=== PATIENT | male | born 1960 | race Hispanic/Latino ===

== ENCOUNTER 2016-10-14 15:18 | Emergency (ER) | payer BC ==
[2016-10-14 15:19] VITALS: BMI 29.4
--- NOTE | 2016-10-14 15:45 | ED PDOC ---
Arrival/HPI - General Chief Complaint: Male Genitourinary Time Seen by Provider: 10/14/16 15:27 Historian: Patient - History of Present Illness Narrative History of Present Illness (Text): 10/14/16 15:42 56-year-old male presents today sent in by his urologist for an erection that has lasted greater than 4 hours. Patient states he has erectile dysfunction after having chemotherapy and with his colostomy. Patient states he used to take just dialysis alone but it was not working so he started taking Trimex injections. Patient states he was injected with trimix today and states that while taking his afternoon medications he is concerned that he may have taken his Cialis as well. Patient states he has had an erection for the past 4 hours. Patient denies pain. Denies fevers or chills. Denies abdominal pain. No nausea or vomiting. Denies dizziness or weakness. Patient states he spoke to his urologist and the urologist is going to come into the emergency room to relieve the priapism. Time/Duration: 4-6 hours Symptom Onset: Gradual Symptom Course: Unchanged Quality: Other (no pain) Past Medical History - Provider Review Nursing Documentation Reviewed: Yes - Travel History Have you recently traveled outside [place] w/in the past 3 mons?: No - Tetanus Immunization Tetanus Immunization: Unknown - Cardiac Hx Pacemaker: Yes ([facility] 01/2009) - Neurological Hx Paralysis: No - Hematological/Oncological Hx Blood Transfusions: No Hx Blood Transfusion Reaction: No - Musculoskeletal/Rheumatological Hx Musculoskeletal Disorders: No - Gastrointestinal Hx Colitis: Yes Hx Colostomy: Yes Other/Comment: Colon CA - Psychiatric Hx Emotional Abuse: No Hx Substance Use: No - Surgical History Hx Open Heart Surgery: Yes Other/Comment: Colectomy with ostomy, artifical heart valve - Anesthesia Hx Anesthesia Reactions: No Hx Malignant Hyperthermia: No - Suicidal Assessment Feels Threatened In Home Enviroment: No Family/Social History - Physician Review Nursing Documentation Reviewed: Yes Family/Social History: Unknown Family HX Smoking Status: Never Smoked Hx Alcohol Use: No Hx Substance Use: No Allergies/Home Meds Allergies/Adverse Reactions: Allergies Iodinated Contrast- Oral and IV Dye Adverse Reaction (Verified 10/14/16 15:28) URTICARIA Home Medications: Home Meds Medication Instructions Recorded Confirmed Losartan Potassium 25 mg PO DAILY 08/01/12 10/14/16 Mesalamine [Asacol HD 800mg] 2 tab PO DAILY 10/14/16 10/14/16 Warfarin [Coumadin] 5 mg PO DAILY 10/14/16 10/14/16 metFORMIN [glucOPHAGE] 500 mg PO BID 10/14/16 10/14/16 Review of Systems - Review of Systems Constitutional: absent: Fatigue, Fevers Respiratory: absent: SOB, Cough Cardiovascular: absent: Chest Pain, Palpitations Gastrointestinal: absent: Abdominal Pain, Diarrhea, Nausea, Vomiting Genitourinary Male: Other (Priapism). absent: Dysuria, Frequency, Hematuria Musculoskeletal: absent: Arthralgias, Back Pain, Neck Pain Skin: absent: Rash, Pruritis Neurological: absent: Headache, Dizziness Psychiatric: absent: Anxiety, Depression Physical Exam Vital Signs Reviewed: Yes Vital Signs Temp Pulse Resp BP Pulse Ox 10/14/16 17:37 98.9 F 80 16 150/86 98 10/14/16 16:22 98.1 F 78 16 130/80 98 10/14/16 16:17 80 130/80 Temperature: Afebrile Blood Pressure: Normal Pulse: Regular Respiratory Rate: Normal Appearance: Positive for: Well-Appearing, Non-Toxic, Comfortable Pain Distress: None Mental Status: Positive for: Alert and Oriented X 3 - Systems Exam Head: Present: Atraumatic Respiratory/Chest: Present: Clear to Auscultation, Good Air Exchange. No: Respiratory Distress, Accessory Muscle Use Cardiovascular: Present: Regular Rate and Rhythm, Normal S1, S2. No: Murmurs Abdomen: Present: Ostomy Tubes (colostomy inplace. no erythema; non tender. ). No: Tenderness, Distention Genitourinary Male: Present: Normal External Genitalia (erect penis). No: Penile Discharge, Testicle Tenderness, Penile Swelling, Erythema Back: Present: Normal Inspection Neurological: Present: GCS=15 Skin: Present: Warm, Dry, Normal Color. No: Rashes Psychiatric: Present: Alert, Oriented x 3 Medical Decision Making ED Course and Treatment: 10/14/16 15:51 56yr old male with priapism. pt was seen in ER by dr. blair (urologist) Priapism resolved after phenylephrine injection performed by Dr. Blair Patient was observed in the emergency room. Vitals remained stable. Patient nontoxic well-appearing no distress. will d/c home to f/u with dr. blair impression; Priaprism follow up with dr. blair return if symptoms worsen,persist or if new symptoms develop. - Medication Orders Current Medication Orders: Discontinued Medications Phenylephrine HCl 10 mg/ (Sodium Chloride) 501 mls @ 500 mls/hr IR .[id number] CLAUDIA Stop: 10/14/16 17:00 Last Admin: 10/14/16 16:17 Dose: 500 mls/hr Comments: Admin by Dr. Blair Disposition/Present on Arrival - Present on Arrival Any Indicators Present on Arrival: No History of DVT/PE: No History of Uncontrolled Diabetes: No Urinary Catheter: No History of Decub. Ulcer: No History Surgical Site Infection Following: None - Disposition Have Diagnosis and Disposition been Completed?: Yes Diagnosis: Priapism Disposition: HOME/ ROUTINE Disposition Time: 17:28 Patient Plan: Discharge Condition: GOOD Additional Instructions: follow up with dr. blair return if symptoms worsen,persist or if new symptoms develop. Referrals: Jerel Blair MD [Staff Provider] - Follow up with primary
[2016-10-14 16:22] VITALS: RESP 16; O2SAT 98
[2016-10-14 17:37] VITALS: BP 150/86; PULSE 80; TEMP 98.9
--- NOTE | 2016-10-14 22:43 | CON ---
GENITOURINARY CONSULTATION DATE: 10/14/2016 HISTORY OF PRESENT ILLNESS: The patient was seen in the ER as an emergency consultation for priapism. He had injected 1 mL of standard Trimix over four hours ago and also may have mistakenly taken a Cialis thinking it was one of his other pills that he takes during the day. This may have contributed to the priapism. It was the first time, he had injected 1 mL of the standard Trimix. The patient was seen in the ER. The penis was erect, but was not painful. It also did not respond to ice or Sudafed that the patient had taken. He had a 21 gauge butterfly inserted into his left corpora. I irrigated him with the solution of 10 mg phenylephrine and 500 mL normal saline. After several irrigations of 10 mL, the penis detumesced rapidly. The irrigant that returned was bright red after the irrigation. The penis remained detumescence. The butterfly was removed. The pressure was held at the site for 5 minutes by the patient with me being present and he was reinspected and again the penis was remaining flaccid. He will be kept in the ER for monitoring over the next half an hour and if stable, will be allowed to go home. He was instructed not to do any corporal injection for one week and when he does to only resume at 0.8 mL of the standard Trimix. Jerel Blair MD
== END 2016-10-14 17:49 | disposition home or self-care (01) ==
LOC: ED 15:18
DX: N48.30 Priapism, unspecified (principal)
CPT/HCPCS: 96374; 99284; J2370; J7040

== ENCOUNTER 2017-02-25 08:06 | Day surgery (SDC) | payer BC ==
[2017-02-12 12:32] VITALS: BMI 28.7
[2017-02-25 08:45] LABS: INR 1.09 (0.93-1.08); PARTIAL THROMBOPLASTIN TIME 35.6 Seconds (25.1-36.5)
[2017-02-25] MEDS ORDERED: Bupivacaine 0.5% Inj(30mL) ONE (08:58)
[2017-02-25] MEDS ORDERED: Propofol 10 mg/ml Inj (20 ML) ONE (09:32)
[2017-02-25] MEDS ORDERED: Midazolam 2 MG/2 ML VIAL ONE (09:33)
[2017-02-25] MEDS ORDERED: Sevoflurane - Inhalation Anesthetic Liq (250 ml) ONE (09:58)
[2017-02-25] MEDS ORDERED: Neostigmine Methylsulfate 3mg/3ml Syringe IV ONE (09:59)
[2017-02-25] MEDS ORDERED: Glycopyrrolate 0.2 mg/ml (2ml vial) ONE (09:59)
[2017-02-25] MEDS ORDERED: Rocuronium 10 mg/ml (5 ml) ONE (10:42)
[2017-02-25] MEDS ORDERED: Morphine 2 mg/ml ISec IVP PRN (11:14)
[2017-02-25] MEDS ORDERED: HYDROmorphone 0.5 mg/0.5 ml ISec IVP PRN (11:14)
[2017-02-25] MEDS ORDERED: Lactated Ringer's 1,000 ML IV SCH (11:15)
[2017-02-25] MEDS ORDERED: HYDROmorphone 1 mg/ml ISec IVP PRN (12:50)
[2017-02-25] MEDS ORDERED: HYDROmorphone 0.5 mg/0.5 ml ISec ONE (12:58)
--- NOTE | 2017-02-25 13:25 | PCM.SURG1 ---
Surgeon's Initial Post Op Note - Surgeon's Notes Surgeon: Dr. Coley Dairy Frozen Manager: Dr. Rayo PGY2, Dr. Schrader PGY1, Kev MS4 Type of Anesthesia: General Endo Pre-Operative Diagnosis: incisonal hernia Operative Findings: see op note Post-Operative Diagnosis: as above Operation Performed: open incisonal hernia repair with mesh, panniculectomy, scar revision Specimen/Specimens Removed: skin, scar, pannus Estimated Blood Loss: EBL {In ML}: 15 Drains Used: Jimy Post-Op Condition: Good Date of Surgery/Procedure: 02/25/17 Time of Surgery/Procedure: 09:45
[2017-02-25] MEDS ORDERED: HYDROmorphone 1 mg/ml ISec ONE (13:28)
[2017-02-25] MEDS: HYDROmorphone 0.2 mg/ml (25ml) 25 ML IV PRN (13:46)
[2017-02-25] MEDS: Insulin Reg-MEDIUM-Coverage SC SCH ×2 (18:52→22:21)
[2017-02-25] MEDS: Metoprolol Succinate 100 mg XL Tab PO SCH (18:58)
[2017-02-25] MEDS ORDERED: Influenza Vaccine 60 mcg/0.5 mL SYR (4YR UP) IM ONE (20:08)
[2017-02-25] MEDS ORDERED: Pneumococcal 23-Valent Vaccine IM ONE (20:08)
--- NOTE | 2017-02-25 23:13 | OP ---
PROCEDURE DATE: 02/25/2017 PREOPERATIVE DIAGNOSES: 1. Incarcerated large incisional hernia. 2. Excessive pannus with inflammation. POSTOPERATIVE DIAGNOSES: 1. Incarcerated large incisional hernia. 2. Excessive pannus with inflammation. PROCEDURES PERFORMED: 1. Open incisional hernia repair with double-layered mesh. 2. Panniculectomy. SURGEON: Joe Coley MD ASSISTANTS: Dr. Rayo and Dr. Rios. ANESTHESIOLOGIST: Dr. Casillas. TYPE OF ANESTHESIA: General endotracheal anesthesia. ESTIMATED BLOOD LOSS: Minimal. SPECIMEN: Excess fat and scar tissue. INDICATIONS: The patient is a 56-year-old male with a history of ulcerative colitis status post subtotal colectomy with J-pouch creation. The patient had previously also ileostomy, which was recently closed. The patient developed incisional hernia postoperatively, which has been increasing in size to the point where now most of the abdominal content is within the hernia. The patient was brought in for the repair. DESCRIPTION OF PROCEDURE: The patient was brought to the operating room, placed on the operating table in a supine position. The patient was connected to EKG, blood pressure and pulse oximetry monitors. The patient then underwent general endotracheal anesthesia and was prepped and draped in the usual sterile fashion. First, using #15 blade, an incision was made lateral to the scar tissue and access to the hernia sac was obtained. The hernia sac was then incised and access to the abdominal cavity was obtained. This was carefully extended and evaluated for the edges of the adequate fascia. Once this was determined, we then proceeded with resection of the excessive pannus with inflammation and removed it completely to the fascia. A portion of the hernia sac was removed with that as well. Once this was completed, flaps were raised laterally to the lateral border of the rectus muscle. A 15 x 20 and 10 x 15 Parietex meshes were sutured together in order to cover the entire defect which was about 30 x 15 cm. Once this was done, I then proceeded with mobilization of the lateral aspect of both fascial layers on both sides as well as mobilization of the retro-bladder space in order to oppose the mesh against the fascia. Once the mesh was sutured together, it was placed in the abdominal cavity and multiple interrupted #1 Prolene stitches were used in order to fix it along the lateral wall as well as on top and the bottom. Once this was completed and the mesh was backed up about 5 to 7 cm laterally in the preperitoneal fashion, I then proceeded with completely tying all those stitches and placing in between. Once the edge of the mesh was safely tacked against the abdominal wall, I then proceeded with closure of the wound using #1 PDS in a running fashion. The Jimy drain was placed into the subcutaneous area where the flaps were raised in order to avoid any seromas. The inflamed fat and skin as well as scar tissue were all sent to the specimen. The resected was about 30 x 25 cm in dimensions. Once the skin was closed and the Jimy drain was attached to suction, the patient was awakened, extubated, and transferred to recovering room for further observation. Joe Coley MD JULIO CÉSAR
[2017-02-26] MEDS: HYDROmorphone 0.2 mg/ml (25ml) 25 ML IV PRN (02:52)
[2017-02-26 06:34] LABS: BASO # 0.02 K/mm3 (0.0-2.0); BASO % 0.2 % (0.0-3.0); EOS # 0.4 (0.0-0.7); EOS % 3.1 % (1.5-5.0); GRAN # 8.13 (1.4-6.5); GRAN % 71.8 % (50.0-68.0); HEMATOCRIT 36.9 % (42.0-52.0); LYMPH # 1.8 (1.2-3.4); LYMPH % 16.2 % (22.0-35.0); MEAN CELL VOLUME 89.3 fl (80.0-105.0); MEAN CORPUSCULAR HGB CONC 33.6 g/dl (31.0-37.0); MEAN PLATELET VOLUME 9.3 fl (7.0-11.0); MONO % 8.7 % (1.0-6.0); RED CELL DISTRIBUTION WIDTH 14.8 % (11.5-14.5); WHITE BLOOD COUNT 11.3 10^3/ul (4.5-11.0)
[2017-02-26 06:43] VITALS: RESP 20; TEMP 98.8
[2017-02-26 06:54] LABS: ALB/GLOB RATIO 1.3 (1.1-1.8); ALKALINE PHOSPHATASE 71 U/L (38-126); ALT/SGPT 35 U/L (7-56); AST/SGOT 30 U/L (17-59); BLOOD UREA NITROGEN 16 mg/dL (7-21); CALCIUM 8.7 mg/dL (8.4-10.5); CARBON DIOXIDE 25 mmol/L (21-33); CHLORIDE 102 mmol/L (98-107); GFR AFRICAN-AMERICAN > 60; GLUCOSE,RANDOM 95 mg/dL (70-110); POTASSIUM 4.3 mmol/L (3.6-5.0); SODIUM 136 mmol/L (132-148)
[2017-02-26] MEDS: Insulin Reg-MEDIUM-Coverage SC SCH ×2 (08:00→12:00)
--- NOTE | 2017-02-26 08:11 | CP.PCM.PN ---
<Jose Schrader - Last Filed: 02/26/17 13:15> Subjective - Date & Time of Evaluation Date of Evaluation: 02/26/17 Time of Evaluation: 06:45 - Subjective Subjective: General Surgery- Dr. Coley Patient seen and examined at bedside this AM. Duque put in last night due to urine retention. 970cc after initial duque insertion. Pain controlled under current regiment. tolerating current diet. Denies nausea, vomiting, chest pain, shortness of breath, fevers, chills. Jimy: 60cc sersang Objective - Vital Signs/Intake and Output Vital Signs (last 24 hours): Temp Pulse Resp BP Pulse Ox 98.8 F 72 20 98/60 L 98 02/26/17 06:40 02/25/17 19:46 02/26/17 06:40 02/26/17 06:40 02/25/17 13:55 Intake and Output: 02/26/17 02/26/17 06:59 18:59 Intake Total 1945 Output Total 1960 Balance -15 - Medications Medications: Current Medications Acetaminophen (Tylenol 325mg Tab) 650 mg PO Q4 PRN PRN Reason: Fever >100.4 F Cephalexin Monohydrate (Keflex) 500 mg PO Q8 CLAUDIA PRN Reason: Protocol Last Admin: 02/26/17 05:44 Dose: 500 mg Enoxaparin Sodium (Lovenox) 40 mg SC DAILY CLAUDIA PRN Reason: Protocol Furosemide (Lasix) 40 mg PO DAILY PRN PRN Reason: Swelling Last Admin: 02/25/17 18:57 Dose: 40 mg Hydromorphone HCl (Dilaudid) 1 mg IVP Q4H PRN PRN Reason: Pain, severe (8-10) Last Admin: 02/25/17 17:12 Dose: 1 mg Hydromorphone HCl (Dilaudid 0.2 Mg/Ml Client Director) 25 mls @ 0 mls/hr IV PRN PRN; Protocol; 0 MG/HR PRN Reason: [employer]ONDS[employer] PER MD ORDER Last Admin: 02/26/17 02:52 Dose: 0.2 mg/hr, 1 mls/hr Insulin Human Regular (Humulin R Med) 0 units SC ACHS CLAUDIA PRN Reason: Protocol Last Admin: 02/25/17 22:21 Dose: Not Given Losartan Potassium (Cozaar) 25 mg PO QAM [facility] Metoclopramide HCl (Reglan) 10 mg IV ONCE PRN PRN Reason: Nausea/Vomiting Metoprolol Succinate (Toprol Xl) 100 mg PO BID [facility] Last Admin: 02/25/17 18:58 Dose: 100 mg Morphine Sulfate (Morphine) 2 mg IVP Q15M PRN PRN Reason: Pain, moderate (4-7) Ondansetron HCl (Zofran Inj) 4 mg IVP Q4H PRN PRN Reason: Nausea/Vomiting Tramadol HCl (Ultram) 50 mg PO TID PRN PRN Reason: Pain, moderate (4-7) - Labs Labs: 02/26/17 05:30 02/26/17 05:30 PT 12.0 SECONDS (9.4-12.5) 02/25/17 08:20 INR 1.09 (0.93-1.08) H 02/25/17 08:20 APTT 35.6 Seconds (25.1-36.5) 02/25/17 08:20 - Constitutional Appears: Non-toxic, No Acute Distress - Head Exam Head Exam: ATRAUMATIC - Eye Exam Eye Exam: EOMI. absent: Scleral icterus - ENT Exam ENT Exam: Mucous Membranes Moist - Respiratory Exam Respiratory Exam: NORMAL BREATHING PATTERN. absent: Accessory Muscle Use, Respiratory Distress - Cardiovascular Exam Cardiovascular Exam: +S1, +S2. absent: Bradycardia, Tachycardia - GI/Abdominal Exam GI & Abdominal Exam: Soft. absent: Distended, Firm, Guarding, Rigid, Tenderness - Neurological Exam Neurological Exam: Alert, Awake, Oriented x3 - Psychiatric Exam Psychiatric exam: Normal Affect - Skin Skin Exam: Intact, Warm Assessment and Plan - Assessment and Plan (Free Text) Assessment: 56M s/p open incisional hernia repair with mesh, panniculectomy, scar revision POD#1 Plan: - d/c duque - void trial, if unable to void after 8hrs, will put duque back in - pain control PRN. will D/C [employer]ONDSMAN this afternoon - encourage IC and OOB - regular diet - monitor drain output - discussed with Dr. Vianca Schrader PGY1 <Joe Coley - Last Filed: 02/26/17 19:07> Objective - Vital Signs/Intake and Output Vital Signs (last 24 hours): Temp Pulse Resp BP Pulse Ox 98.8 F 58 L 20 143/87 100 02/26/17 08:32 02/26/17 08:32 02/26/17 08:32 02/26/17 10:44 02/26/17 08:32 - Labs Labs: 02/26/17 05:30 02/26/17 05:30 PT 12.0 SECONDS (9.4-12.5) 02/25/17 08:20 INR 1.09 (0.93-1.08) H 02/25/17 08:20 APTT 35.6 Seconds (25.1-36.5) 02/25/17 08:20 Assessment and Plan - Assessment and Plan (Free Text) Plan: Patient was seen, evaluated and examined by me. I agree with the assessment and plan as per the resident's note.
[2017-02-26 08:35] VITALS: PULSE 58; O2SAT 100
[2017-02-26] MEDS ORDERED: Enoxaparin 40 mg Syringe SC SCH (10:00)
[2017-02-26] MEDS: Metoprolol Succinate 100 mg XL Tab PO SCH (10:41)
[2017-02-26 10:44] VITALS: BP 143/87
[2017-02-26] MEDS ORDERED: Oxycodone/Acetaminophen 5/325 mg Tab PO PRN (13:56)
--- NOTE | 2017-02-26 14:16 | CP.PCM.DIS ---
<Haydee Rayo - Last Filed: 02/26/17 14:13> Provider - Provider Attending physician: Joe Coley MD Primary care physician: Grazyna Barber DO Time Spent in preparation of Discharge (in minutes): 45 Hospital Course - Lab Results Lab Results: Most Recent Lab Values WBC 11.3 10^3/ul (4.5-11.0) H 02/26/17 05:30 RBC 4.13 10^6/uL (3.5-6.1) 02/26/17 05:30 Hgb 12.4 g/dL (14.0-18.0) L 02/26/17 05:30 Hct 36.9 % (42.0-52.0) L 02/26/17 05:30 MCV 89.3 fl (80.0-105.0) 02/26/17 05:30 MCH 30.0 pg (25.0-35.0) 02/26/17 05:30 MCHC 33.6 g/dl (31.0-37.0) 02/26/17 05:30 RDW 14.8 % (11.5-14.5) H 02/26/17 05:30 Plt Count 182 10^3/uL (120.0-450.0) 02/26/17 05:30 MPV 9.3 fl (7.0-11.0) 02/26/17 05:30 Gran % 71.8 % (50.0-68.0) H 02/26/17 05:30 Lymph % (Auto) 16.2 % (22.0-35.0) L 02/26/17 05:30 [place] % (Auto) 8.7 % (1.0-6.0) H 02/26/17 05:30 Eos % (Auto) 3.1 % (1.5-5.0) 02/26/17 05:30 Baso % (Auto) 0.2 % (0.0-3.0) 02/26/17 05:30 Gran # 8.13 (1.4-6.5) H 02/26/17 05:30 Lymph # 1.8 (1.2-3.4) 02/26/17 05:30 [place] # 1.0 (0.1-0.6) H 02/26/17 05:30 Eos # 0.4 (0.0-0.7) 02/26/17 05:30 Baso # 0.02 K/mm3 (0.0-2.0) 02/26/17 05:30 PT 12.0 SECONDS (9.4-12.5) 02/25/17 08:20 INR 1.09 (0.93-1.08) H 02/25/17 08:20 APTT 35.6 Seconds (25.1-36.5) 02/25/17 08:20 Sodium 136 mmol/L (132-148) 02/26/17 05:30 Potassium 4.3 mmol/L (3.6-5.0) 02/26/17 05:30 Chloride 102 mmol/L (98-107) 02/26/17 05:30 Carbon Dioxide 25 mmol/L (21-33) 02/26/17 05:30 Anion Gap 14 (10-20) 02/26/17 05:30 BUN 16 mg/dL (7-21) 02/26/17 05:30 Creatinine 1.3 mg/dl (0.8-1.5) 02/26/17 05:30 Est GFR ( Amer) > 60 02/26/17 05:30 Est GFR (Non-Af Amer) 57 02/26/17 05:30 POC Glucose (mg/dL) 155 mg/dL (65-110) H 02/26/17 11:29 Random Glucose 95 mg/dL (70-110) 02/26/17 05:30 Calcium 8.7 mg/dL (8.4-10.5) 02/26/17 05:30 Total Bilirubin 1.0 mg/dL (0.2-1.3) 02/26/17 05:30 AST 30 U/L (17-59) 02/26/17 05:30 ALT 35 U/L (7-56) 02/26/17 05:30 Alkaline Phosphatase 71 U/L (38-126) 02/26/17 05:30 Total Protein 7.0 g/dL (5.8-8.3) 02/26/17 05:30 Albumin 4.0 g/dL (3.0-4.8) 02/26/17 05:30 Globulin 3.0 gm/dL 02/26/17 05:30 Albumin/Globulin Ratio 1.3 (1.1-1.8) 02/26/17 05:30 - Hospital Course Hospital Course: 56 M with multiple surgical history came to same day surgery for ventral hernia repair and paniculectomy. Pt tolerated the surgery well. The following day Mendoza was removed. Voided. Tolerated diet. AMbulated. Pain controlled. Pt is cleared to go home. Discharge Exam - Head Exam Head Exam: ATRAUMATIC Additional comments: See progress note. Discharge Plan - Discharge Medications Prescriptions: Docusate Sodium [Colace] 100 mg PO DAILY #20 capsule Cephalexin [cephalexin] 250 mg PO BID #14 cap oxyCODONE/Acetaminophen [Percocet 5/325 mg Tab] 1 ea PO Q6 #20 tab - Follow Up Plan Condition: GOOD Disposition: HOME/ ROUTINE Instructions: [place] Drain Care (DC), Abdominoplasty (DC) Additional Instructions: Follow up at Dr. Coley's office in 1-2 weeks. Take pain med as needed. Take antibiotic Keflex 250mg 1 pill by mouth with food twice a day for 7 days. No heavy lifting for 6 weeks OK to take shower in 3 days. Referrals: Grazyna Barber DO [Primary Care Provider] - Joe Coley MD [Staff Provider] - <Joe Coley - Last Filed: 02/26/17 19:07> Provider - Provider Attending physician: Joe Coley MD Primary care physician: Grazyna Barber DO Hospital Course - Lab Results Lab Results: Most Recent Lab Values WBC 11.3 10^3/ul (4.5-11.0) H 02/26/17 05:30 RBC 4.13 10^6/uL (3.5-6.1) 02/26/17 05:30 Hgb 12.4 g/dL (14.0-18.0) L 02/26/17 05:30 Hct 36.9 % (42.0-52.0) L 02/26/17 05:30 MCV 89.3 fl (80.0-105.0) 02/26/17 05:30 MCH 30.0 pg (25.0-35.0) 02/26/17 05:30 MCHC 33.6 g/dl (31.0-37.0) 02/26/17 05:30 RDW 14.8 % (11.5-14.5) H 02/26/17 05:30 Plt Count 182 10^3/uL (120.0-450.0) 02/26/17 05:30 MPV 9.3 fl (7.0-11.0) 02/26/17 05:30 Gran % 71.8 % (50.0-68.0) H 02/26/17 05:30 Lymph % (Auto) 16.2 % (22.0-35.0) L 02/26/17 05:30 [place] % (Auto) 8.7 % (1.0-6.0) H 02/26/17 05:30 Eos % (Auto) 3.1 % (1.5-5.0) 02/26/17 05:30 Baso % (Auto) 0.2 % (0.0-3.0) 02/26/17 05:30 Gran # 8.13 (1.4-6.5) H 02/26/17 05:30 Lymph # 1.8 (1.2-3.4) 02/26/17 05:30 [place] # 1.0 (0.1-0.6) H 02/26/17 05:30 Eos # 0.4 (0.0-0.7) 02/26/17 05:30 Baso # 0.02 K/mm3 (0.0-2.0) 02/26/17 05:30 PT 12.0 SECONDS (9.4-12.5) 02/25/17 08:20 INR 1.09 (0.93-1.08) H 02/25/17 08:20 APTT 35.6 Seconds (25.1-36.5) 02/25/17 08:20 Sodium 136 mmol/L (132-148) 02/26/17 05:30 Potassium 4.3 mmol/L (3.6-5.0) 02/26/17 05:30 Chloride 102 mmol/L (98-107) 02/26/17 05:30 Carbon Dioxide 25 mmol/L (21-33) 02/26/17 05:30 Anion Gap 14 (10-20) 02/26/17 05:30 BUN 16 mg/dL (7-21) 02/26/17 05:30 Creatinine 1.3 mg/dl (0.8-1.5) 02/26/17 05:30 Est GFR ( Amer) > 60 02/26/17 05:30 Est GFR (Non-Af Amer) 57 02/26/17 05:30 POC Glucose (mg/dL) 126 mg/dL (65-110) H 02/26/17 16:09 Random Glucose 95 mg/dL (70-110) 02/26/17 05:30 Calcium 8.7 mg/dL (8.4-10.5) 02/26/17 05:30 Total Bilirubin 1.0 mg/dL (0.2-1.3) 02/26/17 05:30 AST 30 U/L (17-59) 02/26/17 05:30 ALT 35 U/L (7-56) 02/26/17 05:30 Alkaline Phosphatase 71 U/L (38-126) 02/26/17 05:30 Total Protein 7.0 g/dL (5.8-8.3) 02/26/17 05:30 Albumin 4.0 g/dL (3.0-4.8) 02/26/17 05:30 Globulin 3.0 gm/dL 02/26/17 05:30 Albumin/Globulin Ratio 1.3 (1.1-1.8) 02/26/17 05:30
--- NOTE | 2017-02-26 16:44 | PCM.URO ---
Urology Progress Note - Objective Lab Studies: Reviewed (gu dx: retention and urolithiasis plans : out pt management , follow up with dr lynda ansari , thanks for gu consult, full note to be dictated) Lab Results Last 24 Hours: Laboratory Results - last 24 hr 02/25/17 02/25/17 02/26/17 16:34 21:51 05:30 WBC 11.3 H RBC 4.13 Hgb 12.4 L Hct 36.9 L MCV 89.3 MCH 30.0 MCHC 33.6 RDW 14.8 H Plt Count 182 MPV 9.3 Gran % 71.8 H Lymph % (Auto) 16.2 L [place] % (Auto) 8.7 H Eos % (Auto) 3.1 Baso % (Auto) 0.2 Gran # 8.13 H Lymph # 1.8 [place] # 1.0 H Eos # 0.4 Baso # 0.02 Sodium Potassium Chloride Carbon Dioxide Anion Gap BUN Creatinine Est GFR ( Amer) Est GFR (Non-Af Amer) POC Glucose (mg/dL) 107 138 H Random Glucose Calcium Total Bilirubin AST ALT Alkaline Phosphatase Total Protein Albumin Globulin Albumin/Globulin Ratio 02/26/17 02/26/17 02/26/17 05:30 07:29 11:29 WBC RBC Hgb Hct MCV MCH MCHC RDW Plt Count MPV Gran % Lymph % (Auto) [place] % (Auto) Eos % (Auto) Baso % (Auto) Gran # Lymph # [place] # Eos # Baso # Sodium 136 Potassium 4.3 Chloride 102 Carbon Dioxide 25 Anion Gap 14 BUN 16 Creatinine 1.3 Est GFR ( Amer) > 60 Est GFR (Non-Af Amer) 57 POC Glucose (mg/dL) 101 155 H Random Glucose 95 Calcium 8.7 Total Bilirubin 1.0 AST 30 ALT 35 Alkaline Phosphatase 71 Total Protein 7.0 Albumin 4.0 Globulin 3.0 Albumin/Globulin Ratio 1.3 02/26/17 16:09 WBC RBC Hgb Hct MCV MCH MCHC RDW Plt Count MPV Gran % Lymph % (Auto) [place] % (Auto) Eos % (Auto) Baso % (Auto) Gran # Lymph # [place] # Eos # Baso # Sodium Potassium Chloride Carbon Dioxide Anion Gap BUN Creatinine Est GFR ( Amer) Est GFR (Non-Af Amer) POC Glucose (mg/dL) 126 H Random Glucose Calcium Total Bilirubin AST ALT Alkaline Phosphatase Total Protein Albumin Globulin Albumin/Globulin Ratio Intake & Output: Intake & Output 02/25/17 02/26/17 02/26/17 18:59 06:59 18:59 Intake Total 0 1944 Output Total 1960 Balance 0 -15 Weight 200 lb Intake: IV 0 25 Oral 1919 Output: Drainage 60 Abdomen 60 Urine 1900 Urethral ([place]) 1899 Other: # Bowel Movements 0 Vital Signs: Vital Signs - 24 hr 02/25/17 02/25/17 02/25/17 18:57 18:58 19:46 Temperature 98.4 F Pulse Rate 78 72 Respiratory 16 Rate Blood Pressure 120/80 120/80 151/82 H O2 Sat by Pulse Oximetry 02/25/17 02/26/17 02/26/17 23:19 06:40 08:32 Temperature 98.2 F 98.8 F 98.8 F Pulse Rate 58 L Respiratory 18 20 20 Rate Blood Pressure 118/77 98/60 L 98/60 L O2 Sat by Pulse 100 Oximetry 02/26/17 02/26/17 10:41 10:44 Temperature Pulse Rate Respiratory Rate Blood Pressure 143/87 143/87 O2 Sat by Pulse Oximetry
== END 2017-02-26 17:38 | disposition home or self-care (01) ==
LOC: SDS 08:06 → 3RSO 14:10 → SDS 02-26 17:38
PROVIDERS: ATTEND General Practice
DX: K43.0 Incisional hernia with obstruction, without gangrene (principal); E65 Localized adiposity; K51.90 Ulcerative colitis, unspecified, without complications; R33.9 Retention of urine, unspecified; I10 Essential (primary) hypertension; I25.10 Atherosclerotic heart disease of native coronary artery without angina pectoris; E11.51 Type 2 diabetes mellitus with diabetic peripheral angiopathy without gangrene; Z79.84 Long term (current) use of oral hypoglycemic drugs; Z90.49 Acquired absence of other specified parts of digestive tract
CPT/HCPCS: 15830; 36415 ×2; 49561; 49568; 80053; 82948 ×2; 85025; 85610; 85730; 88307; C1781; J0690; J1170 ×4; J1650; J2001; J2250; J2270; J2405; J2704; J2710; J2765; J3010; J7120 ×2

== ENCOUNTER 2017-06-03 10:48 | Emergency (ER) | payer BC ==
[2017-06-03 10:54] VITALS: BMI 29.4
[2017-06-03 11:01] VITALS: TEMP 98.5
--- NOTE | 2017-06-03 11:20 | ED PDOC ---
Arrival/HPI - General Chief Complaint: Male Genitourinary Time Seen by Provider: 06/03/17 10:54 Historian: Patient - History of Present Illness Time/Duration: 1 week Symptom Onset: Gradual Symptom Course: Improving Severity Level: Moderate Activities at Onset: Rest Associated Symptoms (Text): 06/03/17 11:17 Patient complains of approximately one week history of right flank and right sided abdominal pain which has since resolved. There is a history of kidney stones, and this feels similar. He had some hematuria and urinary urgency. These have since resolved. He was seen in the office by his PMD 2 days ago and had routine blood work drawn. He was called today by his PMD and directed to the emergency department for renal failure. No fever or chills. No abdominal pain nausea or vomiting. No injury or trauma. 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 History of ulcerative colitis and colon cancer with a total colectomy. He has finished his chemotherapy. Past Medical History - Tetanus Immunization Tetanus Immunization: Unknown - Cardiac Hx Internal Defibrillator: Yes ([facility] 10/2010) Hx Pacemaker: Yes ([facility] 01/2009) Other/Comment: pacemaker changed to defibrillator 10/2010, open heart aortic valve replacement [facility] valve 1995 nbi, had sx for "hole in heart" found a heart murmer as per pt - Neurological Hx Paralysis: No - HEENT Hx HEENT Disorder: Yes (eyeglasses) - Renal Hx Kidney Stones: Yes (developed after colostomy) - Endocrine/Metabolic Hx Diabetes Mellitus Type 2: Yes - Hematological/Oncological Hx Blood Disorders: (blood transfusion over 20 yrs ago) Hx Cancer: Yes (colon) Other/Comment: pt has ulcerative colitis for 32 yrs and goes for yearly colonoscopies, 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 and colostomy 09/2015 underwent [address] dixon, colostomy reversed 2016 - Integumentary Other/Comment: surgical dressing and moraima with binder intact, red blotches ariound right and left neck x 2 days itchy unknown cause as per pt - Musculoskeletal/Rheumatological Hx Musculoskeletal Disorders: No Hx Falls: No - Gastrointestinal Hx Colostomy: Yes Other/Comment: Colon CA - Psychiatric Hx Emotional Abuse: No Hx Physical Abuse: No Hx Substance Use: No - Surgical History Other/Comment: hernia repair as and teenager - Anesthesia Hx Anesthesia Reactions: No Hx Malignant Hyperthermia: No - Suicidal Assessment Feels Threatened In Home Enviroment: No Family/Social History - Physician Review Nursing Documentation Reviewed: Yes Family/Social History: Unknown Family HX Smoking Status: Former Smoker (Quit smoking 30 years ago) Hx Alcohol Use: No Hx Substance Use: No Allergies/Home Meds Allergies/Adverse Reactions: Allergies Iodinated Contrast- Oral and IV Dye Allergy (Intermediate, Verified 06/03/17 10: 54) HIVES Home Medications: Home Meds Medication Instructions Recorded Confirmed Losartan Potassium 25 mg PO QAM 08/01/12 06/03/17 Warfarin [Coumadin] 5 mg PO QAM 10/14/16 06/03/17 metFORMIN [glucOPHAGE] 500 mg PO BID 10/14/16 06/03/17 Furosemide [Lasix] 40 mg PO PRN PRN 02/12/17 06/03/17 Melatonin 10 mg PO HS 02/12/17 06/03/17 Metoprolol Succinate [Toprol XL] 100 mg PO BID 02/12/17 06/03/17 Potassium Gluconate [Potassium] 595 mg PO PRN PRN 02/12/17 06/03/17 Allopurinol [Zyloprim] 0 mg PO DAILY 06/03/17 06/03/17 Multivit-Mins/Iron/Folic/Lycop 1 each PO DAILY 06/03/17 06/03/17 [Centrum Men's Tablet] Tamsulosin [Flomax] 0.4 mg PO BID 06/03/17 06/03/17 Vitb6/Mag Cit,Ox/Potassium Cit 1 tab PO BID 06/03/17 06/03/17 [Theralith Xr 90 mg-49.5 mg-3.75 mg] Review of Systems - Physician Review All systems were reviewed & negative as marked: Yes - Review of Systems Constitutional: Fatigue. absent: Fevers Respiratory: absent: SOB, Cough, Wheezing Cardiovascular: absent: Chest Pain, Palpitations Gastrointestinal: Abdominal Pain. absent: Constipation, Diarrhea, Nausea, Vomiting Genitourinary Male: Frequency, Hematuria. absent: Dysuria Neurological: absent: Headache, Dizziness, Focal Weakness Physical Exam Vital Signs Temp Pulse Resp BP Pulse Ox 06/03/17 12:45 64 17 140/85 99 06/03/17 11:01 98.5 F 70 19 150/85 98 06/03/17 11:00 98.5 F 61 19 150/85 98 Temperature: Afebrile Blood Pressure: Hypertensive Pulse: Regular Respiratory Rate: Normal Appearance: Positive for: Well-Appearing, Non-Toxic, Comfortable Pain Distress: None Mental Status: Positive for: Alert and Oriented X 3 - Systems Exam Head: Present: Atraumatic, Normocephalic Pupils: Present: PERRL Extroacular Muscles: Present: EOMI Conjunctiva: Present: Normal Mouth: Present: Moist Mucous Membranes Pharnyx: No: ERYTHEMA, EXUDATE, TONSILS ENLARGED Neck: Present: Normal Range of Motion Respiratory/Chest: Present: Clear to Auscultation, Good Air Exchange, Other ( Scar). No: Respiratory Distress, Accessory Muscle Use Cardiovascular: Present: Regular Rate and Rhythm, Normal S1, S2. No: Murmurs Abdomen: Present: Normal Bowel Sounds, Scars. No: Tenderness, Distention, Peritoneal Signs, Rebound, Guarding Back: Present: Normal Inspection. No: CVA Tenderness, Midline Tenderness, Paraspinal Tenderness Upper Extremity: Present: Normal Inspection. No: Cyanosis, Edema Lower Extremity: Present: Normal Inspection. No: Edema Neurological: Present: GCS=15, CN II-XII Intact, Speech Normal, Motor Func Grossly Intact Skin: Present: Warm, Dry, Normal Color. No: Rashes Medical Decision Making - Lab Interpretations Lab Results: 06/03/17 11:11 06/03/17 11:11 Lab Results 06/03/17 11:11: Sodium 142, Potassium 4.2, Chloride 103, Carbon Dioxide 27, Anion Gap 16, BUN 30 H, Creatinine 1.2, Est GFR ( Amer) > 60, Est GFR ( Non-Af Amer) > 60, Random Glucose 114 H, Calcium 10.0, Total Bilirubin 0.4, AST 42, ALT 43, Alkaline Phosphatase 105, Total Protein 8.4 H, Albumin 4.7, Globulin 3.7, Albumin/Globulin Ratio 1.2, Lipase 164 06/03/17 11:11: Urine Color Yellow, Urine Appearance Clear, Urine pH 6.0, Ur Specific [place] 1.025, Urine Protein 30 H, Urine Glucose (UA) Negative, Urine Ketones Trace H, Urine Blood Negative, Urine Nitrate Negative, Urine Bilirubin Negative, Urine Urobilinogen 0.2, Ur Leukocyte Esterase Negative, Urine RBC 0 - 2, Urine WBC 0 - 2, Ur Epithelial Cells 0 - 2, Other Crystals Bili, Urine Bacteria Trace 06/03/17 11:11: PT 22.8 H, INR 1.96 H, APTT 43.2 H 06/03/17 11:11: WBC 6.9 D, RBC 4.29, Hgb 13.3 L, Hct 39.7 L, MCV 92.5 D, MCH 31.0, MCHC 33.5, RDW 15.0 H, Plt Count 195, MPV 9.5, Gran % 61.5, Lymph % (Auto ) 26.4, Kinney % (Auto) 6.9 H, Eos % (Auto) 4.8, Baso % (Auto) 0.4, Gran # 4.22, Lymph # (Auto) 1.8, Kinney # (Auto) 0.5, Eos # (Auto) 0.3, Baso # (Auto) 0.03 - RAD Interpretation Radiology Orders: 06/03/17 11:16 ABD & PELVIS W/O PO OR IV CONT [CT] Stat CT scan of the abdomen and pelvis is read by the radiologist shows no acute findings. [facility] Department Operator: Radiologist Disposition/Present on Arrival - Present on Arrival Any Indicators Present on Arrival: No History of DVT/PE: No History of Uncontrolled Diabetes: No Urinary Catheter: No History of Decub. Ulcer: No History Surgical Site Infection Following: None - Disposition Have Diagnosis and Disposition been Completed?: Yes Diagnosis: Renal colic on right side, Dehydration Disposition: HOME/ ROUTINE Disposition Time: 12:49 Patient Plan: Discharge Condition: GOOD Discharge Instructions (ExitCare): Dehydration, Adult (DC), Renal Colic (DC) Additional Instructions: Follow-up with PMD and urologist. Follow up in ER as needed. Increase fluids. Referrals: Grazyna Barber DO [Primary Care Provider] - Follow up with primary Forms: [employer] (Tai[place]ese)
[2017-06-03 11:37] LABS: BASO # 0.03 K/mm3 (0.0-2.0); BASO % 0.4 % (0.0-3.0); EOS # 0.3 (0.0-0.7); EOS % 4.8 % (1.5-5.0); GRAN # 4.22 (1.4-6.5); GRAN % 61.5 % (50.0-68.0); HEMOGLOBIN 13.3 g/dL (14.0-18.0); LYMPH # 1.8 (1.2-3.4); LYMPH % 26.4 % (22.0-35.0); MEAN CELL VOLUME 92.5 fl (80.0-105.0); MEAN CORPUSCULAR HGB CONC 33.5 g/dl (31.0-37.0); MEAN PLATELET VOLUME 9.5 fl (7.0-11.0); MONO # 0.5 (0.1-0.6); MONO % 6.9 % (1.0-6.0); RBC 4.29 10^6/uL (3.5-6.1); URINE BILIRUBIN NEGATIVE (NEGATIVE); URINE BLOOD NEGATIVE (NEGATIVE); URINE GLUCOSE (UA) NEGATIVE (NEGATIVE); URINE LEUKOCYTE ESTERASE NEGATIVE Leu/uL (NEGATIVE); URINE PROTEIN 30 mg/dL (<30 mg/dL); URINE UROBILINOGEN 0.2 E.U./dL (<1 E.U./dL); WHITE BLOOD COUNT 6.9 10^3/ul (4.5-11.0)
[2017-06-03 11:38] LABS: URINE APPEARANCE CLEAR (CLEAR); URINE COLOR YELLOW (YELLOW)
[2017-06-03 11:42] LABS: URINE BACTERIA TRACE (NEG); URINE EPITHELIAL CELLS 0 - 2 /hpf (0-5); URINE OTHER CRYSTALS BILI /hpf; URINE RBC 0 - 2 /hpf (0-2); URINE WBC 0 - 2 /hpf (0-6)
[2017-06-03 11:46] LABS: ALB/GLOB RATIO 1.2 (1.1-1.8); ALBUMIN 4.7 g/dL (3.0-4.8); ALT/SGPT 43 U/L (7-56); AST/SGOT 42 U/L (17-59); BLOOD UREA NITROGEN 30 mg/dL (7-21); GFR AFRICAN-AMERICAN > 60; GFR NON-AFRICAN AMERICAN > 60; INR 1.96 (0.93-1.08); LIPASE 164 U/L (23-300); PARTIAL THROMBOPLASTIN TIME 43.2 Seconds (25.1-36.5); PROTHROMBIN TIME 22.8 SECONDS (9.4-12.5)
--- NOTE | 2017-06-03 12:39 | CT ---
PROCEDURE: CT Abdomen and Pelvis without intravenous contrast HISTORY: right stone run COMPARISON: None. TECHNIQUE: Without contrast.. Contrast Dose: Radiation dose: Total exam DLP = 894 mGy-cm. This CT exam was performed using one or more of the following dose reduction techniques: Automated exposure control, adjustment of the mA and/or kV according to patient size, and/or use of iterative reconstruction technique. FINDINGS: LOWER THORAX: Unremarkable. LIVER: Unremarkable. No gross lesion or ductal dilatation. GALLBLADDER AND BILE DUCTS: Unremarkable. PANCREAS: Unremarkable. No gross lesion or ductal dilatation. SPLEEN: Unremarkable. ADRENALS: Unremarkable. No mass. KIDNEYS AND URETERS: Unremarkable. No hydronephrosis. No solid mass. VASCULATURE: Unremarkable. No aortic aneurysm. BOWEL: Unremarkable. No obstruction. No gross mural thickening. APPENDIX: Unremarkable. Normal appendix. PERITONEUM: A hernia mesh is seen along the anterior abdominal wall. LYMPH NODES: Unremarkable. No enlarged lymph nodes. BLADDER: Unremarkable. REPRODUCTIVE: Unremarkable. BONES: No acute fracture. OTHER FINDINGS: None. IMPRESSION: No acute findings. No evidence of obstructive uropathy
[2017-06-03 12:45] VITALS: BP 140/85; PULSE 64; RESP 17; O2SAT 99
== END 2017-06-03 13:03 | disposition home or self-care (01) ==
LOC: ED 10:48
DX: N23 Unspecified renal colic (principal); E86.0 Dehydration; Z85.038 Personal history of other malignant neoplasm of large intestine